=== PATIENT | female | born 1960 | race Caucasian/White ===

== ENCOUNTER → 2024-01-11 16:08 | Outpatient (REF) | payer BC, SELFPAY | LOC: HWRCS 16:08 | PROVIDERS: ATTENDING PHYSICIAN Internal Medicine Cardiovascular Disease; FAMILY PHYSICIAN Physician Assistant Medical | DX: I47.20 Ventricular tachycardia, unspecified (principal) | CPT/HCPCS: 93306 ==

== ENCOUNTER → 2024-02-07 08:38 | Outpatient (REF) | payer BC, SELFPAY | LOC: DHCBC/DCA 08:38 | PROVIDERS: ATTENDING PHYSICIAN Internal Medicine Cardiovascular Disease; FAMILY PHYSICIAN Physician Assistant Medical | DX: I47.20 Ventricular tachycardia, unspecified (principal); I25.5 Ischemic cardiomyopathy; Z95.810 Presence of automatic (implantable) cardiac defibrillator | CPT/HCPCS: 78452; 93017; A9500; J2785 ==

== ENCOUNTER 2024-04-22 21:32 | Emergency (ER) | payer BC, SELFPAY ==
[2024-04-22 21:37] VITALS: BP 170/85
[2024-04-22 22:01] VITALS: BP 150/63
[2024-04-22 22:33] VITALS: BMI 29.8
[2024-04-22 22:38] LABS: % Basophils 0.4 % (0-2); % Eosinophils 0.6 % (0-6); % Immature Granulocytes 0.3 % (0-0.5); % Lymphocytes 29.3 % (20.5-51.1); % Monocytes 5.9 % (1.7-9.3); % Neutrophils 63.5 % (42.2-75.2); Absolute Lymphocytes 2.1 10^3/uL (1.2-3.4); Absolute Monocytes 0.4 10^3/uL (0.1-0.6); Absolute Neutrophils 4.4 10^3/uL (1.4-6.5); Hematocrit 40.9 % (37.0-47.0); Hemoglobin 12.8 g/dL (12.0-16.0); Mean Corp Hgb Conc. 31.3 g/dL (33.0-37.0); Mean Corpuscular Hgb 25.8 pg (27.0-31.0); Mean Corpuscular Volume 82.5 fL (81.0-99.0); Mean Platelet Volume 9.5 fL (7.4-10.4); Nucleated Red Blood Cells % 0 %; Platelet Count 182 10^3/uL (130-400); Red Blood Cell Count 4.96 10^6/uL (4.20-5.40); Red Cell Dist. Width 14.5 % (11.5-14.5)
[2024-04-22] MEDS: NSS 1000 IV (22:53)
[2024-04-22 22:56] LABS: ALT (SGPT) 29 U/L (0-35); AST (SGOT) 28 U/L (14-36); Albumin 4.7 g/dl (3.5-5.0); Alkaline Phosphatase 57 U/L (38-126); Blood Urea Nitrogen 17 mg/dl (7-17); Calcium 9.7 mg/dl (8.4-10.2); Carbon Dioxide 27 mmol/L (22-30); Chloride 102 mmol/L (98-107); Estimated Creatinine Clearance 45 ml/min; Glucose 167 mg/dl (70-99); Potassium 3.7 mmol/L (3.5-5.1); Sodium 140 mmol/L (135-145); Total Protein 7.1 g/dl (6.3-8.2); eGFR 56.46
[2024-04-22 23:00] VITALS: BP 151/62
--- NOTE | 2024-04-22 23:17 | ED.GENMED ---
History of Present Illness
General
Chief Complaint: AICD Problem
Source: patient
Exam Limitations: none
Time Seen by Provider: 04/22/24 21:48
History of Present Illness
History of Present Illness:
This is a 64 year old female that comes in with c/o of her defibrillator firing. States that in 17 years her defibrillator has never gone off. State that it went off in August and she then saw the rn cardiovascular and did a lot of testing. Then in February
it went off again as her heart rate went up to 200 she was shocked and then ok. 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 States that she did not fall. State that she just felt strange and lightheaded. States that she
was also nauseated. Denies any fever, chills, chest pain, SOB, abd pain, vomiting, urinary burning.
Past History
Past History
ED Past Medical History: CAD, CHF, GERD, HTN, Hypercholesterolemia, NIDDM, [place], Psychiatric (Anxiety, ) and Other (Back pain, Sciatica, cardiac arrest, Hiatal hernia, Pancreatitis, Renal calculus, Iron def anemia. )
ED Past Surgical History: Cardiac (CABG x4, AICD), Cholecystectomy, , Gynecological (), Orthopedic (Left total knee replacement), Tonsilectomy and Other (Teeth extraction. )
Social History
Tobacco: Former smoker
Alcohol: Occasional
Personal:
Living: with family
Employment: Employed
Family History
Family History: Diabetes and CAD
Review of Systems
Review of Systems
All Other Systems: ROS reviewed and negative except as documented in HPI and ROS
Constitutional: Reports no symptoms; Denies fever or chills
EENT: Reports no symptoms
Respiratory: Reports no symptoms; Denies cough or trouble breathing
Cardiac: Reports other (Defib shock); Denies chest pain
ABD/GI: Reports nausea; Denies abdominal pain, vomiting or diarrhea
: Reports no symptoms; Denies dysuria, frequency or urgency
Musculoskeletal: Reports no symptoms
Skin: Reports no symptoms
Neurological: Reports headache and other (Lightheaded)
Psychiatric: Reports no symptoms
Phy Exam
General Physical Exam
General Presentation: well appearing and no apparent distress
General age: appears stated age
General Skin: warm and dry
General Habitus: normal
General Mental: alert
General Hydration: dry mucous membranes
ENT Exam
ENT Exam: TM's normal, pharynx normal and neck supple
Eye Exam
Eye Exam: EOMI
Cardiovascular Exam
Cardiovascular Exam: no edema, normal peripheral pulses and irregularly irregular
Pulmonary Exam
Pulmonary Exam: lungs clear, no respiratory distress, no rales, chest non tender, no crackles, no rhonchi, no wheezing and no cough
Gastrointestinal Exam
Gastrointestinal Exam: normal bowel sounds, non tender, soft, no organomegaly, no pulsatile mass and non distended
Musculoskeletal Exam
Musculoskeletal Exam: full ROM, neck pain, back pain and no edema
Skin Exam
Skin Exam: normal color, warm/dry, no rash and no petechia
Psychiatric Exam
Psychiatric Exam: normal mood/affect
Course
Orders/Labs/Results
Orders:
Orders
04/22/24 21:33
Electrocardiogram (*1) Urgent
Reason for Study: Other
Other Reason for Exam: AICD FIRED STILL HAVING DISCOMFORT
04/22/24 21:34
EKG- Treatment ONCE
04/22/24 22:02
0.9% Sodium Chloride 1000 ml [Nss] 1,000 ml IV BOLUS
Nursing to Place Non Medication Order As Directed
Physician Order: Please interrogate Pacer.
Above order entered?: Yes
04/22/24 22:31
Complete Blood Count/With Diff Urgent
Comprehensive Metabolic Panel Urgent
Troponin I Urgent
04/22/24 23:30
EKG- Treatment ONCE
04/22/24 23:35
Pantoprazole [Protonix IV] 40 mg IV NOW STA
04/22/24 23:43
Urinalysis Reflex To Culture Urgent
Date Specimen was Collected: 04/22/24
Time Specimen was Collected: 23:38
04/23/24 01:30
Electrocardiogram (*1) Urgent
Reason for Study: Other
Other Reason for Exam: Repeat with Troponin
04/23/24 01:39
Troponin I Urgent
Abnormal Lab Results
04/22/24 04/22/24 04/23/24
22:31 23:43 01:39
MCH 25.8 L pg
(27.0-31.0)
MCHC 31.3 L g/dL
(33.0-37.0)
Creatinine 1.1 H mg/dL
(0.6-1.0)
Glucose 167 H mg/dl
(70-99)
Troponin I 0.036 H* ng/ml
Urine Glucose 3+ A
(Negative)
04/22/24 22:31
04/22/24 22:31
Cr slightly elevated. hyperglycemia. Troponin 0.030
Vital Signs
Initial and Last Documented VS:
Initial Vital Signs
Temp Pulse Resp BP Pulse Ox
98 F 82 16 170/85 98
04/22/24 21:37 04/22/24 21:37 04/22/24 21:37 04/22/24 21:37 04/22/24 21:37
Last Documented Vital Signs
Temp Pulse Resp BP Pulse Ox
98 F 67 15 141/64 98
04/22/24 21:37 04/23/24 02:15 04/23/24 02:15 04/23/24 02:09 04/23/24 02:15
MDM/Problems Addressed
Differential Diagnosis Includes:
Defibrillator shock,
MDM/Problems Addressed:
This is a 64 year old female that comes in as her Defib. went off. States that she just felt strange and lightheaded so she came in.
Will check labs. and get chest x-ray. Will also given IV fluids. Spoke with Dr. Morales and sent ECG. If patient is feeling better and troponin stays unchanged patient can follow up with the [facility] Nurse in the office.
Repeat ECG: rate 68, 1st degree heart block, Left axis, QRS normal occasional PVC,
Back into see patient. Patient is taking oral fluids. States that she is feeling better. Explained that her Troponin changed every so slightly. Patient to follow up with the [facility] Nurse in there office for further evaluation. Message also sent to
the [facility] Nurse to notify him of this slight bump. Patient to increase her water intake to 8-8oz glasses daily. Return with any concerns .
*Pulse Oximetry
Patient hypoxic: no
*EKG
Interpreted by ED Provider?: Yes
Heart Rate: 83
Rate: normal
Rhythm: sinus and PVC's
[place]: left axis deviation
Interval: normal interval
QRS Pattern: normal QRS
Ischemia: no ischemia
*Hide And Skin Fleshing Machine Operator Interpretation
Rate: normal
Heart Rate: 86
Rhythm: sinus and PVC's
*Critical Care Note
Total Time (30-74mins, 75-104mins- exclusive of procedures): Not Applicable
ED Attending Note
-
Portions of this chart may have been created with voice recognition software.� Occasional wrong word or��sound alike� substitutions may have occurred due to the inherent limitations of voice recognition software.
Discharge Plan
Departure
Patient Disposition: Home (Routine Discharge)
Date of Disposition: 04/23/24
Time of Disposition: 02:33
Patient with high blood pressure during this ER visit?: Yes
Condition: Good
Covid-19: Not Applicable
Discharge Problem:
Defibrillator discharge
Instructions: Ventricular premature beats, BLOOD PRESSURE
Prescriptions:
No Action
furosemide 20 MG tablet
20 mg PO DAILY
cyanocobalamin (vitamin B-12) [Vitamin B-12] 500 MCG tablet
500 mcg PO DAILY
ranitidine HCl [Zantac] 150 MG tablet
150 mg PO PRN PRN (Reason: Heartburn)
cetirizine 10 MG tablet
10 mg PO HS
zolpidem 10 MG tablet
10 mg PO HS
cholecalciferol (vitamin D3) 1,000 UNITS tablet
1,000 units PO DAILY
pantoprazole 40 MG tablet,delayed release (DR/EC)
40 mg PO DAILY
metformin 500 MG tablet
500 mg PO BID
rosuvastatin [Crestor] 40 MG tablet
40 mg PO HS
spironolactone 12.5 MG tablet
12.5 mg PO DAILY
lorazepam 0.5 MG tablet
0.5 mg PO PRN PRN (Reason: Anxiety)
glimepiride 2 MG tablet
2 mg PO BID
acetaminophen [Tylenol Arthritis Pain] 650 MG tablet extended release
2 tab PO BID PRN (Reason: pain)
Saline Nasal [place]
1 applic intranasal PRN PRN (Reason: dryness)
docusate sodium 100 MG capsule
100 mg PO BID 0RF
oxycodone 5 MG tablet
5 mg PO Q4HPRN PRN (Reason: mild pain) Qty: 60 0RF
Rx Instructions:
1-2 every 4-6 hour as needed for pain
Aspirin Low (Enteric Coated):
81 mg PO DAILY
Entresto 97 mg-103 mg Tablet
1 tab PO BID
carvedilol 12.5 MG tablet
25 mg PO BID
ondansetron [Zofran ODT] 8 MG tablet,disintegrating
4 mg PO TID PRN (Reason: nausea)
Referrals:
Sree Morales MD [Active] - Follow up in 2-3 days
Leatha Currie PA-C [Family Provider] -
Activity Restrictions/Additional Instructions:
As discussed, your blood work shows that your blood sugar is elevated. Your Troponin did not change much and you are feeling better. Please increase your water intake to 8-8oz glasses daily. Please call the [facility] Nurse office and let them know you
were here and set up a follow up appointment. They may want to change your Medication. IF YOU HAVE ANY FURTHER DISCHARGES, CHEST PAIN, OR YOU HAVE ANY OTHER CONCERNS PLEASE RETURN TO THE EMERGENCY ROOM.
Interventions
Interventions:
*Risk Screen - Suicide Last Done: 04/22/24 21:37
*General Assessment Last Done: 04/22/24 22:38
*Neglect/Abuse Screening Last Done: 04/22/24 21:37
ED- Fall Risk Assessment Last Done: 04/22/24 22:38
*ED COVID-19 Vaccine History Last Done: 04/22/24 22:38
ED- Cardiac Assessment Last Done: 04/22/24 22:38
ED- Pulmonary Assessment Last Done: 04/22/24 22:38
Discharge Date and Time
Print Language: SPANISH
[2024-04-22] MEDS: PROTONIX IV 40 MG IV (23:44)
[2024-04-23 00:07] LABS: Urine Albumin Negative (Neg - Trace); Urine Bilirubin Negative (Negative); Urine Character Clear (Clear); Urine Color Yellow; Urine Glucose 3+ (Negative); Urine Ketone Negative (Negative); Urine Leukocyte Negative (Negative); Urine Nitrite Negative (Negative); Urine Occult Blood Negative (Negative); Urine Specific Gravity 1.005 (<1.030); Urine Urobilinogen Negative (Neg - 1+)
[2024-04-23 02:09] VITALS: BP 141/64
[2024-04-23 02:20] LABS: Troponin I 0.036 ng/ml
== END 2024-04-23 02:48 | disposition home or self-care (01) ==
LOC: EMR 21:32
PROVIDERS: Clinical Nurse Specialist Family Health; Emergency Medicine; EMERGENCY PHYSICIAN Student in an Organized Health Care Education/Training Program; FAMILY PHYSICIAN Physician Assistant Medical
DX: Z45.02 Encounter for adjustment and management of automatic implantable cardiac defibrillator (principal); Z95.810 Presence of automatic (implantable) cardiac defibrillator; I25.10 Atherosclerotic heart disease of native coronary artery without angina pectoris; I11.0 Hypertensive heart disease with heart failure; I50.9 Heart failure, unspecified; E11.65 Type 2 diabetes mellitus with hyperglycemia; E78.00 Pure hypercholesterolemia, unspecified; F41.9 Anxiety disorder, unspecified; I49.3 Ventricular premature depolarization; K21.9 Gastro-esophageal reflux disease without esophagitis; Z82.49 Family history of ischemic heart disease and other diseases of the circulatory system; Z83.3 Family history of diabetes mellitus; Z86.74 Personal history of sudden cardiac arrest; Z87.442 Personal history of urinary calculi; Z87.891 Personal history of nicotine dependence; Z90.49 Acquired absence of other specified parts of digestive tract; Z95.1 Presence of aortocoronary bypass graft
CPT/HCPCS: 99283; 96374; 80053; 81003; 84484; 85025; 93005

== ENCOUNTER 2024-05-31 08:34 | Day surgery (SDC) | payer BC, SELFPAY ==
[2024-05-22 10:32] VITALS: BMI 29.3
[2024-05-22 11:08] LABS: % Basophils 0.5 % (0-2); % Eosinophils 1.8 % (0-6); % Immature Granulocytes 0.4 % (0-0.5); % Monocytes 7.1 % (1.7-9.3); % Neutrophils 60.2 % (42.2-75.2); Absolute Eosinophils 0.1 10^3/uL (0-0.7); Absolute Lymphocytes 1.7 10^3/uL (1.2-3.4); Absolute Monocytes 0.4 10^3/uL (0.1-0.6); Absolute Neutrophils 3.3 10^3/uL (1.4-6.5); Hematocrit 36.1 % (37.0-47.0); Hemoglobin 11.3 g/dL (12.0-16.0); Mean Corp Hgb Conc. 31.3 g/dL (33.0-37.0); Mean Corpuscular Hgb 24.8 pg (27.0-31.0); Mean Corpuscular Volume 79.3 fL (81.0-99.0); Mean Platelet Volume 10.2 fL (7.4-10.4); Nucleated Red Blood Cells % 0 %; Platelet Count 157 10^3/uL (130-400); Red Blood Cell Count 4.55 10^6/uL (4.20-5.40); White Blood Cell Count 5.5 10^3/uL (4.8-10.8)
[2024-05-22 11:40] LABS: ALT (SGPT) 19 U/L (0-35); AST (SGOT) 19 U/L (14-36); Albumin 4.1 g/dl (3.5-5.0); Alkaline Phosphatase 61 U/L (38-126); Blood Urea Nitrogen 13 mg/dl (7-17); Calcium 8.9 mg/dl (8.4-10.2); Carbon Dioxide 25 mmol/L (22-30); Chloride 105 mmol/L (98-107); Estimated Creatinine Clearance 64 ml/min; Glucose 158 mg/dl (70-99); Potassium 3.6 mmol/L (3.5-5.1); Sodium 139 mmol/L (135-145); Total Bilirubin 1.1 mg/dl (0.2-1.3); Total Protein 6.3 g/dl (6.3-8.2); eGFR > 60.00
[2024-05-31] VITALS (14 sets, daily range): BP systolic 106–140; BP diastolic 57–88; BMI 29.2
[2024-05-31 09:23] LABS: Glucose - Point of Care 189 mg/dl (70-99)
--- NOTE | 2024-05-31 10:25 | PTCARENOTE ---
Dr Rivas at pt bedside speaking to pt and pt's and pt's sister.
[2024-05-31 12:36] LABS: ACT-LR - POC 360 Seconds (116-155)
[2024-05-31 13:15] LABS: ACT-LR - POC 347 Seconds (116-155)
--- NOTE | 2024-05-31 14:04 | ITS.CL.ABL ---
Veneer Grader - Ablation
Ablation
Procedure Report:
Procedure Report:
VT ablation:
Ms. Pitt is a 64 yo pleasant woman with PMH of ICM with ventricular tachycardia requiring multiple shocks from ICD and increasing burden of PVCs. Patient has a history of cardiac arrest status post ICD and CABG in 2005, ischemic cardiomyopathy
with large inferior and inferolateral scar of the left ventricle, LVEF 40% with history of hypertension, DM, HPL now with NYHA class III symptoms with VT and increasing PVC burden presented today to the EP lab for VT ablation
Date of the Procedure:
05/31/2024
Indications:
Ischemic Ventricular Tachycardia
Premature ventricular contractions
Pre-Operative Diagnosis:
Ischemic Ventricular Tachycardia
Premature ventricular contractions.
Post-Operative Diagnosis:
Ischemic Ventricular Tachycardia
Premature ventricular contractions.
Procedure Performed:
Ventricular tachycardia ablation - Substrate Modification
Focal VT ablation / PVC ablation.
3D mapping
ICE
Performing Physician:
Maria Dolores Rivas MD
Anesthesia:
See anesthesia records
Detailed Description of the Procedure:
Written informed consent was obtained from the patient after a full explanation of the risks and benefits of the procedure including the risks of sedation and anesthesia. The patient was brought to the electrophysiology laboratory in stable
condition in fasting state. Continuous electrocardiographic and hemodynamic monitoring was initiated.
The initial rhythm was normal sinus rhythm with PVCs.
Device Interrogation:
Patient has Med[employer]onic ICD in place. The device was interrogated at the start of the case. The device and the lead was working normally. The tachy-therapies monitoring and interventions were suspended before the start of the case. The clinical statistical programmer
remained connected in the room throughout the procedure.
At the end of the case the device was reprogrammed to normal functioning at the previous settings. All therapies are resumed and ICD was armed before patient left the procedure room.
Time out:
The procedure site was meticulously prepared with surgical scrub and allowed to dry with no pooling. Sterile draping was applied to cover the procedure site. The image intensifier was draped with sterile bag and positioned over the patient.
Prior to the start of the procedure a surgical pause was performed with in agreement from anesthesia, EP staff with double identifier and explanation of the procedure, plan and site of the procedure stated with allergies and medications and
pertinent labs reviewed.
After infusion of local anesthetic, vascular access was obtained under ultrasound guidance and sheaths were placed over guide wire as detailed below.
Sheath and Catheter Placement:
The femoral sheath was upgraded as needed during the case. The following catheters / sheaths were placed
Sheaths:
��������������� 8Fr in right femoral vein � upgraded to Agilis
��������������� 9Fr sheath in right femoral vein
Catheters:
��������������� 4 mm force sensing irrigated Tacticath SF Bidirectional - at locations of RA, LA, LV
��������������� The Advisor HD Grid Mapping Catheter, Sensor Enabled� (LocalCustomer)- at locations of LA, LV
��������������� Accu-Franky ICE catheter
Intracardiac ECHO:
An 8-[place] AcuNav intracardiac ECHO (ICE) probe was advanced through the 9-[place] Citizen sheath in the femoral vein into the right atrium under fluoroscopic and ICE ultrasound image guidance and a baseline ECHO study was performed. The left atrial size
was dilated. There was moderate tricuspid regurgitation. The bioprosthetic aortic valve was grossly normal. There was moderate mitral regurgitation noted. There was moderately reduced left ventricular systolic function. There is trace pericardial
effusion.
During the procedure, ICE was used for monitoring of complications, guidance of trans-septal puncture, monitor the catheter position and tracking ablation lesions. No change in the pericardial space noted throughout the procedure.
Trans-septal Puncture:
Heparin was initiated and infused to maintain appropriate ACT. A J-tipped guidewire was advanced through the 8-[place] Citizen sheath in the right femoral vein into the superior vena cava under fluoroscopic and ICE guidance. The 8-[place] Citizen sheath was exchanged
for an Agilis sheath which was advanced into the superior vena cava. A BRK transseptal needle was advanced until the tip was slightly behind the tip of the dilator inside the Agilis sheath. The apparatus was withdrawn until it was in contact with
the fossa ovalis. The position was adjusted based on fluoroscopy and ultrasound images from ICE. Under fluoroscopic, hemodynamic and ICE ultrasound guidance, left atrium was cannulated by advancing the needle. Once atrial septum was cannulated, the
needle was pulled back and a BMW guide wire was advanced through the needle into the left atrium. The guide wire was advanced into the left superior pulmonary vein. Both the sheath and the dilator was advanced into the left atrium. The dilator with
the needle was withdrawn. Blood was aspirated from the sheath and arterial blood confirmed. The sheath was flushed. Saline injection noted into the left atrium on ICE. The mapping catheter was advanced in the Agilis sheath into the left pulmonary
vein.
3D Electroanatomic Mapping:
Using the 3D mapping and EAM of the LA and LV was obtained using [employer] precision mapping system and radiofrequency ablation was performed using an open irrigation, force-sensing 4mm radiofrequency ablation catheter ([employer]� Quartz
contact force ablation catheter). Cardiac anatomy was established.
First LA was mapped. Then the LV cavity was mapped with high density mapping using the HD Grid and the scar areas were identified.
The LV scar was inferior and infero lateral locations.
There was multitude of late diastolic potentials noted in the LV cavity. There were channels identified in the scar that was delayed but were able to conduct and the heterogonous zones were marked. The area of slowest conduction was marked for
ablation.
Patient had salvos of VT with catheter in the area and the area of initiation was noted and marked.
Ablation:
Ventricular tachycardia: Substrate Modification:
The radiofrequency ablation was performed using an open irrigation, force-sensing 4mm radiofrequency ablation catheter (TactiCath� Quartz contact force ablation catheter). The scar and heterogeneous zones were identified that are responsible for
slow conduction and propagate VT. These areas were ablated in series of lesions.
The scars borders were identified and the critical areas were ablated. The heterogenours / border zones were homogenized. The slowest conduction area of the scar was marked and ablated with consolidating lesions.
There were multiple areas that started the VT but with ablation converted to sinus rhythm or paced rhythm. All areas of the irritability was studied and the abnormal fractionated signals and late diastolic signals were ablated one by one.
Focal VT / PVC ablation:
The focal area of the VT was noted coming from the pap muscle. The pap muscle initially induced VT of 320 msec. The VT was sustained and was focal. The VT was difficult to map given the continuous movement of the pap muscle. Given hemodynamic
instability, patient was cardioverted to sinus rhythm.
Further mapping of the LV and pap muscle was done and the catheter pressing on the pap muscle induced fast VT 280 msec CL. It was unstable and was cardioverted. The pap muscle was also noted to be the origin of PVC. However, the ectopy in LV made it
difficult to map the PVC as it was difficult to differentiate clinical to catheter induced PVCs.
Patient pap muscle tip was ablated and additional ablation lesions were placed.
No VT was inducible at end of the study with aggressive pacing maneuvers. MUSTT protocol was used with S1, S2, S3, and S4 and no VT was inducible. Burst pacing from the LV cavity was also uneventful.
Procedure End
ICE study was done again that showed no epicardial accumulation. No complications noted.
Following the completion of the EP study, catheters were removed. Protamine 40 mg was given at the end of the procedure and ACT was checked repeatedly. The sheaths were removed and hemostasis achieved with figure of 8 suture and manual compression
after acceptable ACT is achieved.
LA and LV Pressure:
Pre-Procedure: Mean LA pressure was 5mmHg
Estimated Blood loss:
<5 cc
Specimens Removed:
None.
Implants / Devices:
None
Urine output:
None
Packs / Drains/ Tubes:
None
Instrument / Sponge Count Correct:
Yes
Complications of the Procedure:
None
Condition of Patient at Time of Transfer:
Hemodynamically stable with no neurological or vascular compromise.
Summary:
VT ablation with scar based reentry with substrate modification and focal papillary muscle VT /PVC ablation.
[2024-05-31 14:45] LABS: Glucose - Point of Care 163 mg/dl (70-99)
[2024-05-31] MEDS: TYLENOL 650 MG PO ×2 (14:59→23:04)
--- NOTE | 2024-05-31 15:55 | CM ---
Chart reviewed. Patient is independent of ADLS, lives with her in a 2 STH, 2 LAURE, 0 DME. Plan is for the patient to return home. CM to follow
[2024-05-31] MEDS: GLUCOPHAGE 500 MG PO (18:47)
--- NOTE | 2024-05-31 19:56 | PTCARENOTE ---
Pt received post VT ablation.Right femoral vein site with dry and intact dressing, figure of eight suture removed without problem, no sign of bleeding or hematoma. Pt OOB with assist of one, c/o slight dizziness. Pt voiding without problem.
telemetry shows sinus rhythm with first degree AV block and frequent PVC's.
[2024-05-31] MEDS: ENTRESTO 97 MG/103 MG 1 TAB PO (20:26)
[2024-05-31] MEDS: AMARYL 2 MG PO (20:26)
[2024-05-31] MEDS: COREG 25 MG PO (20:27)
[2024-05-31] MEDS: CRESTOR 40 MG PO (23:04)
[2024-05-31] MEDS: AMBIEN 10 MG PO (23:04)
[2024-05-31] MEDS: ZYRTEC 10 MG PO (23:04)
[2024-06-01 00:11] LABS: Glucose - Point of Care 283 mg/dl (70-99)
--- NOTE | 2024-06-01 03:00 | PTCARENOTE ---
Pt received at change of shift. NSR with PVCs on tele with HR 70s-80s. Pt denies dizziness and CP. R fem site c/d/i with no complications noted. Ambulating independently in room without difficulty. Can make needs known. Call hedrick within reach.
[2024-06-01 03:47] VITALS: BP 125/64
[2024-06-01 03:50] VITALS: BMI 30.2
[2024-06-01 04:33] LABS: Hematocrit 31.4 % (37.0-47.0); Hemoglobin 10.1 g/dL (12.0-16.0); Mean Corp Hgb Conc. 32.2 g/dL (33.0-37.0); Mean Corpuscular Hgb 24.9 pg (27.0-31.0); Mean Corpuscular Volume 77.5 fL (81.0-99.0); Mean Platelet Volume 10.1 fL (7.4-10.4); Platelet Count 152 10^3/uL (130-400); Red Blood Cell Count 4.05 10^6/uL (4.20-5.40); Red Cell Dist. Width 13.8 % (11.5-14.5); White Blood Cell Count 5.3 10^3/uL (4.8-10.8)
[2024-06-01 04:48] LABS: Blood Urea Nitrogen 17 mg/dl (7-17); Calcium 8.6 mg/dl (8.4-10.2); Carbon Dioxide 21 mmol/L (22-30); Chloride 110 mmol/L (98-107); Estimated Creatinine Clearance 72 ml/min; Glucose 239 mg/dl (70-99); Magnesium 1.8 mg/dl (1.6-2.3); Potassium 3.7 mmol/L (3.5-5.1); Sodium 138 mmol/L (135-145); eGFR > 60.00
--- NOTE | 2024-06-01 07:37 | W.PN.CD ---
Today's Communication / Plan
-
- Stable for discharge
Impression / Plan
-
Ms. Pitt is a 64 yo pleasant woman with PMH of ICM with ventricular tachycardia requiring multiple shocks from ICD and increasing burden of PVCs. Patient has a history of cardiac arrest status post ICD and CABG in 2005, ischemic cardiomyopathy
with large inferior and inferolateral scar of the left ventricle, LVEF 40% with history of hypertension, DM, HPL now with NYHA class III symptoms with VT and increasing PVC burden s/p VT ablation
VT
- s/p ablation 05/31/24
- s/p substrate modification and scar based reentry VT ablation
- s/p focal Pap muscle VT ablation
- Still have some PVCs - unclear clinical significance
- Groins examined and looks good with n o bleeding or hematoma
- Telemetry showed no VT - only rare PVCs.
- No Amiodarone or AAD at this time (Patient does not like Amiodarone)
- If VT noted in next 2-3 months then can consider addition of Amiodarone or Ranexa
- ICD in place and working normally.
CAD
- On ASA, Coreg, Farxiga, Entresto and Crestor
- On Lasix.
- No sign of ischemia
Ischemic cardiomyopathy
- NYHA class III
- ECHO 01/11/24: LVEF 40%
- On GDMT
Physical Exam
Vital Signs/Labs
Vital Signs
Temp Pulse Resp BP Pulse Ox
98 F 76 18 126/75 96
06/01/24 03:49 06/01/24 00:00 06/01/24 03:49 05/31/24 22:52 06/01/24 03:49
05/31/24 06/01/24 06/02/24
06:59 06:59 06:59
Actual Weight 70.1 kg
06/01/24 04:08
06/01/24 04:08
Magnesium 1.8 mg/dl (1.6-2.3) 06/01/24 04:08
Physical Exam
Constitutional: No acute distress and Comfortable
EENT: Anicteric and Moist mucous membranes
Cardiovascular: Rhythm & rate is regular, Pedal edema is absent and JVD pressure is normal
Respiratory: Respiratory effort normal, Lungs clear to auscul., Wheeze Absent and Crackles Absent
GI: Soft, Non tender and Normal bowel sounds
Neuro/Psych: Alert, Oriented and AO x 3
Other: Cath Site
Data Reviewed
-
Date of Service: June 01, 2024
Medical Decision Making: Reviewed Test Results, Test Interpretation and Review of Case with other Provider
EKG: Tracing Personally Visualized and interpreted
Echo: Report Reviewed by me
Labs: Labs Reviewed by me
Old Records: Reviewed
[2024-06-01 07:54] VITALS: BMI 30.2
[2024-06-01 08:38] VITALS: BP 124/67
[2024-06-01] MEDS: GLUCOPHAGE 500 MG PO (08:57)
[2024-06-01] MEDS: FARXIGA 10 MG PO (08:57)
[2024-06-01] MEDS: ENTRESTO 97 MG/103 MG 1 TAB PO (08:57)
[2024-06-01] MEDS: COREG 25 MG PO (08:58)
[2024-06-01] MEDS: PROTONIX 40 MG PO (08:58)
[2024-06-01] MEDS: ALDACTONE 12.5 MG PO (08:58)
[2024-06-01] MEDS: AMARYL 2 MG PO (08:58)
[2024-06-01] MEDS: LASIX 20 MG PO (08:59)
[2024-06-01] MEDS: ASPIR LOW (ENTERIC COATED) 81 MG PO (08:59)
[2024-06-01] MEDS: TYLENOL 650 MG PO (09:02)
[2024-06-01 09:21] LABS: Glucose - Point of Care 215 mg/dl (70-99)
[2024-06-01 10:15] LABS: ACT-LR - POC > 397 Seconds (116-155)
[2024-06-01 10:15] LABS: ACT-LR - POC > 397 Seconds (116-155)
[2024-06-01 11:29] VITALS: BP 135/63
--- NOTE | 2024-06-01 11:36 | W.DS.TRANS ---
DC Summary - Actionscript Developer
-
Discharge Instructions:
Sleep Apnea Risk Low
Discharge Diagnosis/Procedures Ventricular tachycardia post ablation
Diet Diabetic, Carb Controlled,Low Cholesterol,2 Gram
Sodium
Driving Restrictions No driving for 24 hours
Specialty Instructions Weigh Daily
Instructions:
Stand-Alone Forms: DC Instructions- Cath/EP Lab
Changes to Home Medications: No
Discharge Medications:
DC Medications w/original date entered in [facility]
furosemide 20 mg tablet 20 mg PO DAILY Fluid Retention/Swelling 08/16/12
cyanocobalamin (vitamin B-12) 500 mcg tablet (Vitamin B-12) 500 mcg PO DAILY Supplement 10/23/15
cetirizine 10 mg tablet 10 mg PO HS Allergies 12/04/15
cholecalciferol (vitamin D3) 25 mcg (1,000 unit) tablet 1,000 units PO DAILY Supplement 12/04/15
zolpidem 10 mg tablet 10 mg PO HS Sleep 12/04/15
metformin 500 mg tablet 500 mg PO BID Diabetes 05/13/16
pantoprazole 40 mg tablet,delayed release 40 mg PO DAILY Gastrointestinal Issue 05/13/16
rosuvastatin 40 mg tablet (Crestor) 40 mg PO HS High Cholesterol 05/13/16
lorazepam 0.5 mg tablet 0.5 mg PO PRN PRN Anxiety 07/08/17
spironolactone 25 mg tablet 12.5 mg PO DAILY Fluid Retention/Swelling 07/08/17
acetaminophen 650 mg tablet,extended release (Tylenol Arthritis Pain) 2 tab PO BID pain 03/10/18
glimepiride 2 mg tablet 2 mg PO BID Diabetes 03/10/18
ondansetron 8 mg disintegrating tablet (Zofran ODT) 4 mg PO TID PRN nausea 05/16/19
Tums 2 chewable tab PO DAILYPRN PRN refulx 05/31/24
aspirin 81 mg tablet,delayed release 81 mg PO DAILY Blood Clot Prevention/Tx 05/31/24
carvedilol 25 mg tablet 25 mg PO BID Heart Disease/Condition 05/31/24
dapagliflozin propanediol 10 mg tablet (Farxiga) 10 mg PO DAILY 05/31/24
famotidine 20 mg tablet (Pepcid) 20 mg PO DAILYPRN PRN gerd 05/31/24
sacubitril 97 mg-valsartan 103 mg tablet (Entresto) 1 tab PO BID Heart Disease/Condition 05/31/24
Home Medication Changes
Pending Results: No
--- NOTE | 2024-06-01 12:02 | PTCARENOTE ---
d/c instructions read to pt and pt verbalized understanding. iv and tele removed. groin dressing CDI. pt left w/ belongings from room, d/c instructions and educational packets. pt left via wheelchair with staff member.
== END 2024-06-01 12:03 | disposition home or self-care (01) ==
LOC: CATH 08:34
PROVIDERS: Nurse Practitioner Adult Health; ATTENDING PHYSICIAN Internal Medicine Cardiovascular Disease; FAMILY PHYSICIAN Physician Assistant Medical; OTHER PHYSICIAN Internal Medicine Cardiovascular Disease
DX: I47.20 Ventricular tachycardia, unspecified (principal); I25.5 Ischemic cardiomyopathy; I49.3 Ventricular premature depolarization; Z95.1 Presence of aortocoronary bypass graft; E11.9 Type 2 diabetes mellitus without complications; Z86.74 Personal history of sudden cardiac arrest; Z79.899 Other long term (current) drug therapy; Z79.84 Long term (current) use of oral hypoglycemic drugs; Z79.82 Long term (current) use of aspirin; I25.10 Atherosclerotic heart disease of native coronary artery without angina pectoris; I47.10 Supraventricular tachycardia, unspecified; Z88.1 Allergy status to other antibiotic agents; Z88.5 Allergy status to narcotic agent; Z91.041 Radiographic dye allergy status
CPT/HCPCS: 93662; C1732; C1769; C1766; C2630; C1894; C1892; C1759; 36415; 76937; 80048; 80053; 82962; 83036; 83735; 85025; 85027; 85347; 93005; 93462; 93654

== ENCOUNTER 2024-07-06 16:48 | Emergency (ER) | payer BC, SELFPAY ==
[2024-07-06 16:51] VITALS: BP 175/91
[2024-07-06 17:24] LABS: % Basophils 0.7 % (0-2); % Immature Granulocytes 0.2 % (0-0.5); % Lymphocytes 29.9 % (20.5-51.1); % Monocytes 7.2 % (1.7-9.3); Absolute Eosinophils 0.1 10^3/uL (0-0.7); Absolute Lymphocytes 1.8 10^3/uL (1.2-3.4); Absolute Monocytes 0.4 10^3/uL (0.1-0.6); Absolute Neutrophils 3.8 10^3/uL (1.4-6.5); Hematocrit 36.6 % (37.0-47.0); Hemoglobin 11.7 g/dL (12.0-16.0); Mean Corpuscular Hgb 24.8 pg (27.0-31.0); Mean Corpuscular Volume 77.7 fL (81.0-99.0); Mean Platelet Volume 9.8 fL (7.4-10.4); Nucleated Red Blood Cells % 0 %; Platelet Count 173 10^3/uL (130-400); Red Blood Cell Count 4.71 10^6/uL (4.20-5.40); White Blood Cell Count 6.2 10^3/uL (4.8-10.8)
[2024-07-06 17:38] LABS: ALT (SGPT) 36 U/L (0-35); AST (SGOT) 28 U/L (14-36); Albumin 4.4 g/dl (3.5-5.0); Alkaline Phosphatase 70 U/L (38-126); Blood Urea Nitrogen 14 mg/dl (7-17); Calcium 9.6 mg/dl (8.4-10.2); Carbon Dioxide 22 mmol/L (22-30); Chloride 106 mmol/L (98-107); Glucose 141 mg/dl (70-99); Potassium 3.9 mmol/L (3.5-5.1); Sodium 138 mmol/L (135-145); Total Bilirubin 1.4 mg/dl (0.2-1.3); Total Protein 6.6 g/dl (6.3-8.2); eGFR > 60.00
[2024-07-06 17:49] LABS: Troponin I < 0.012 ng/ml
[2024-07-06 20:17] VITALS: BMI 27.5
[2024-07-06 21:00] VITALS: BP 163/89
--- NOTE | 2024-07-06 21:08 | ED.GENMED ---
History of Present Illness
General
Chief Complaint: Heart Rate Problem
Source: patient and spouse
Exam Limitations: none
Time Seen by Provider: 07/06/24 20:11
Nursing documentation reviewed up to this point in time: agreed with
History of Present Illness
History of Present Illness:
64-year-old female past medical history of CHF CAD, pacemaker in place, diabetes presenting to the emergency department today with concerns of right ear pain nausea has had intermittent chest pain over the past few weeks but none present or
throughout the day today. Denies nausea vomiting numbness weakness fevers.
Past History
Past History
ED Past Medical History: CAD, CHF, GERD, HTN, Hypercholesterolemia, NIDDM, [place], Psychiatric (Anxiety, ) and Other (Back pain, Sciatica, cardiac arrest, Hiatal hernia, Pancreatitis, Renal calculus, Iron def anemia. )
ED Past Surgical History: Cardiac (CABG x4, AICD), Cholecystectomy, , Gynecological (), Orthopedic (Left total knee replacement), Tonsilectomy and Other (Teeth extraction. )
Social History
Tobacco: Former smoker
Alcohol: Occasional
Personal:
Living: with family
Employment: Employed
Family History
Family History: Diabetes and CAD
Review of Systems
Review of Systems
Allergies reviewed?: Yes
All Other Systems: ROS reviewed and negative except as documented in HPI and ROS
Phy Exam
Physical Exam
Physical Exam:
GENERAL: Alert , in no apparent distress
EYE: pupils equal and reactive
NECK: Supple, no significant adenopathy.
ENT: o/p clr, mmm.
CARDIAC: Regular rate and rhythm .
LUNGS: Clear breath sounds bilaterally, no acute respiratory distress, no wheezes/rales/rhonchi
ABDOMEN: Soft, without focal tenderness, no r/g, no cvat
NEUROLOGICAL: Alert and oriented, no focal neuro deficits
SKIN: Warm and dry, skin intact.
MUSCULOSKELETAL: No edema, well perfused.
PSYCH: Normal and appropriate interaction.
Course
Orders/Labs/Results
Orders:
Orders
07/06/24 16:55
Electrocardiogram (*1) Urgent
Reason for Study: Chest Pain
EKG- Treatment ONCE
07/06/24 17:14
Complete Blood Count/With Diff Urgent
Comprehensive Metabolic Panel Urgent
Troponin I Urgent
Abnormal Lab Results
07/06/24
17:14
Hgb 11.7 L g/dL
(12.0-16.0)
Hct 36.6 L %
(37.0-47.0)
MCV 77.7 L fL
(81.0-99.0)
MCH 24.8 L pg
(27.0-31.0)
MCHC 32.0 L g/dL
(33.0-37.0)
Glucose 141 H mg/dl
(70-99)
Total Bilirubin 1.4 H mg/dl
(0.2-1.3)
ALT 36 H U/L
(0-35)
07/06/24 17:14
07/06/24 17:14
Vital Signs
Initial and Last Documented VS:
Initial Vital Signs
Temp Pulse Resp BP Pulse Ox
98.5 F 86 18 175/91 98
07/06/24 16:51 07/06/24 16:51 07/06/24 16:51 07/06/24 16:51 07/06/24 16:51
Last Documented Vital Signs
Temp Pulse Resp BP Pulse Ox
98.5 F 84 13 163/89 98
07/06/24 16:51 07/06/24 21:00 07/06/24 21:00 07/06/24 21:00 07/06/24 21:00
MDM/Problems Addressed
MDM/Problems Addressed:
64-year-old female presenting to the emergency department with multiple symptoms mainly concerned of nausea stomach achiness some right ear pain starting yesterday has had some intermittent chest pain over the past few weeks but none more recently.
On arrival blood pressure elevated otherwise vital signs are normal. Labs unremarkable troponin negative EKG normal patient does not have any apparent emergent life threats at this time some effusion to her right ear was advised to use Flonase.
Otherwise table for discharge return precautions given.
*Critical Care Note
Total Time (30-74mins, 75-104mins- exclusive of procedures): Not Applicable
ED Attending Note
-
Portions of this chart may have been created with voice recognition software.� Occasional wrong word or��sound alike� substitutions may have occurred due to the inherent limitations of voice recognition software.
Discharge Plan
Departure
Patient Disposition: Home (Routine Discharge)
Date of Disposition: 07/06/24
Time of Disposition: 21:08
Patient with high blood pressure during this ER visit?: No
Condition: Good
Covid-19: Not Applicable
Discharge Problem:
Chest pain, Acute ear pain
Instructions: Chest Pain CBC Follow Up
Prescriptions:
No Action
furosemide 20 MG tablet
20 mg PO DAILY
cyanocobalamin (vitamin B-12) [Vitamin B-12] 500 MCG tablet
500 mcg PO DAILY
cetirizine 10 MG tablet
10 mg PO HS
zolpidem 10 MG tablet
10 mg PO HS
cholecalciferol (vitamin D3) 1,000 UNITS tablet
1,000 units PO DAILY
pantoprazole 40 MG tablet,delayed release (DR/EC)
40 mg PO DAILY
metformin 500 MG tablet
500 mg PO BID
rosuvastatin [Crestor] 40 MG tablet
40 mg PO HS
spironolactone 12.5 MG tablet
12.5 mg PO DAILY
lorazepam 0.5 MG tablet
0.5 mg PO PRN PRN (Reason: Anxiety)
glimepiride 2 MG tablet
2 mg PO BID
acetaminophen [Tylenol Arthritis Pain] 650 MG tablet extended release
2 tab PO BID
ondansetron [Zofran ODT] 8 MG tablet,disintegrating
4 mg PO TID PRN (Reason: nausea)
carvedilol 25 mg Tablet
25 mg PO BID
dapagliflozin propanediol [Farxiga] 10 mg Tablet
10 mg PO DAILY
sacubitril-valsartan [Entresto] 97-103 mg Tablet
1 tab PO BID
aspirin 81 mg Tablet,Delayed Release (Dr/Ec)
81 mg PO DAILY
famotidine [Pepcid] 20 mg Tablet
20 mg PO DAILYPRN PRN (Reason: gerd)
Tums
2 chewable tab PO DAILYPRN PRN (Reason: refulx)
Activity Restrictions/Additional Instructions:
You came to the emergency department today with concerns of intermittent chest pain nausea right ear pain. Here you had a reassuring assessment. Please follow closely with cardiology. Return for any worsening, new or concerning symptoms.
Interventions
Interventions:
*Risk Screen - Suicide Last Done: 07/06/24 21:58
*General Assessment Last Done: 07/06/24 21:58
*Neglect/Abuse Screening Last Done: 07/06/24 21:58
*Nursing Disposition Last Done: 07/06/24 21:59
ED- Cardiac Assessment Last Done: 07/06/24 21:55
ED- Pulmonary Assessment Last Done: 07/06/24 21:55
Discharge Date and Time
Discharge Date/Time: 07/06/24 21:59
Print Language: VENEZUELAN
== END 2024-07-06 21:59 | disposition home or self-care (01) ==
LOC: EMR 16:48
PROVIDERS: Emergency Medicine; EMERGENCY PHYSICIAN Emergency Medicine; FAMILY PHYSICIAN Physician Assistant Medical
DX: H92.01 Otalgia, right ear (principal); R07.89 Other chest pain; I50.9 Heart failure, unspecified; I25.10 Atherosclerotic heart disease of native coronary artery without angina pectoris; Z95.810 Presence of automatic (implantable) cardiac defibrillator; Z87.891 Personal history of nicotine dependence; E11.9 Type 2 diabetes mellitus without complications
CPT/HCPCS: 99284; 80053; 84484; 85025; 93005

== ENCOUNTER 2024-09-22 01:52 | Observation (INO) | payer BC, SELFPAY ==
[2024-09-21 21:36] VITALS: BP 172/93
[2024-09-21 22:05] LABS: % Basophils 0.6 % (0-2); % Eosinophils 1.7 % (0-6); % Immature Granulocytes 0.2 % (0-0.5); % Lymphocytes 34.7 % (20.5-51.1); % Monocytes 6.3 % (1.7-9.3); % Neutrophils 56.5 % (42.2-75.2); Absolute Eosinophils 0.1 10^3/uL (0-0.7); Absolute Lymphocytes 1.8 10^3/uL (1.2-3.4); Absolute Monocytes 0.3 10^3/uL (0.1-0.6); Hematocrit 35.6 % (37.0-47.0); Hemoglobin 11.4 g/dL (12.0-16.0); Mean Corpuscular Hgb 24.8 pg (27.0-31.0); Mean Corpuscular Volume 77.4 fL (81.0-99.0); Nucleated Red Blood Cells % 0 %; Platelet Count 153 10^3/uL (130-400); Red Cell Dist. Width 16.6 % (11.5-14.5); White Blood Cell Count 5.3 10^3/uL (4.8-10.8)
[2024-09-21 22:18] LABS: ALT (SGPT) 24 U/L (0-35); AST (SGOT) 23 U/L (14-36); Albumin 4.2 g/dl (3.5-5.0); Alkaline Phosphatase 66 U/L (38-126); Blood Urea Nitrogen 16 mg/dl (7-17); Calcium 9.3 mg/dl (8.4-10.2); Carbon Dioxide 21 mmol/L (22-30); Chloride 112 mmol/L (98-107); Glucose 169 mg/dl (70-99); Potassium 3.9 mmol/L (3.5-5.1); Sodium 139 mmol/L (135-145); Total Bilirubin 1.1 mg/dl (0.2-1.3); Total Protein 6.4 g/dl (6.3-8.2); eGFR > 60.00
[2024-09-21 22:27] LABS: Troponin I 0.049 ng/ml
[2024-09-21 23:31] VITALS: BP 135/71
[2024-09-21] MEDS: ZOFRAN ODT (ORALLY DISINTEGRATING) 4 MG PO (23:38)
[2024-09-22] VITALS (9 sets, daily range): BP systolic 108–151; BP diastolic 60–100; BMI 28.9
--- NOTE | 2024-09-22 00:07 | ED.GENMED ---
History of Present Illness
General
Chief Complaint: Chest Pain
Source: patient
Exam Limitations: none
Time Seen by Provider: 09/21/24 23:47
Nursing documentation reviewed up to this point in time: agreed with
History of Present Illness
History of Present Illness:
The patient is a pleasant 64-year-old female with a past medical history of coronary artery disease, cardiac bypass surgery, and defibrillator, who presents with 2 days of intermittent nausea. Patient denies abdominal pain and diarrhea. She denies
vomiting. She denies fever. Patient reports that about 3 hours prior to her arrival to the ED, she developed 5 out of 10 mid sternal chest tightness. Patient reports that shortly after coming to the ED, her chest pain went down on its own to a 1
out of 10. Currently it is still a 1 out of 10. Patient denies shortness of breath and sweating. Patient denies leg pain and leg swelling.
Past History
Past History
ED Past Medical History: CAD, CHF, GERD, HTN, Hypercholesterolemia, NIDDM, [place], Psychiatric (Anxiety, ) and Other (Back pain, Sciatica, cardiac arrest, Hiatal hernia, Pancreatitis, Renal calculus, Iron def anemia. )
ED Past Surgical History: Cardiac (CABG x4, AICD), Cholecystectomy, , Gynecological (), Orthopedic (Left total knee replacement), Tonsilectomy and Other (Teeth extraction. )
Social History
Tobacco: Former smoker
Alcohol: Occasional
Drug: None
Personal:
Living: with family
Employment: Employed
Family History
Family History: Diabetes and CAD
Review of Systems
Review of Systems
Allergies reviewed?: Yes
All Other Systems: ROS reviewed and negative except as documented in HPI and ROS
Constitutional: Reports no symptoms
EENT: Reports no symptoms
Respiratory: Reports no symptoms
Cardiac: Reports chest pain
ABD/GI: Reports nausea
Musculoskeletal: Reports no symptoms
Skin: Reports no symptoms
Neurological: Reports no symptoms
Endocrine: Reports no symptoms
Hematologic/Lymphatic: Reports no symptoms
Psychiatric: Reports no symptoms
Phy Exam
Physical Exam
Physical Exam:
Physical Exam
General: no apparent distress, not acutely ill. Patient is smiling and conversational
Neck: supple. no meningeal signs. normal psoterior pharynx
Heart: s1/s2 regular rate and rhythm, equal radial and femoral pulses bilaterally
Lungs: no acute respiratory distress. clear bilaterally
Abdomen: normal bowel sounds. not tender. no CVAT. No pulsatile mass
Neuro: alert and oriented. no focal neurological deficits
Skin: no rash
Psychiatric: well kept. interactive and cooperative
Extremities: no edema. no calf tenderness. negative homans. good distal pulses
Scores
Heart Score for Chest Pain Patients
STEMI patient?: No
History: Slightly or Non-Suspicious
ECG: Nonspecific Repolarization
Age: >45 - <65 years
Risk Factors: >/= 3 Risk Factors or History of CAD
Troponin: >1 - <3 x Normal Limit
Heart Score for Chest Pain Patients: 5
Heart Score Risk: 20.3% MACE over next 6 weeks
Course
Orders/Labs/Results
Orders:
Orders
09/21/24 21:36
Electrocardiogram (*1) Urgent
Reason for Study: Chest Pain
EKG- Treatment ONCE
09/21/24 21:53
Complete Blood Count/With Diff Urgent
Comprehensive Metabolic Panel Urgent
Lipase Urgent
Comment: ADD ON
Troponin I Urgent
09/21/24 23:37
Ondansetron Orally Disint [Zofran Odt (Orally Disintegrating)] 4 mg .ROUTE .STK-MED ONE
09/21/24 23:38
Ondansetron Orally Disint [Zofran Odt (Orally Disintegrating)] 4 mg PO NOW STA
09/22/24 00:25
Nitroglycerin Sublingual [Nitrostat (Sublingual)] 0.4 mg SL NOW STA
09/22/24 00:49
Add On- LAB Urgent
Tests Added?: lipase
EKG [Electrocardiogram (*1)] Urgent
Reason for Study: Chest Pain
EKG- Treatment ONCE
09/22/24 00:50
CR Chest - 2 Views Urgent
Comment:
Reason For Exam: CP
09/22/24 00:58
Aspirin Chewable [Low Strength Aspirin] 324 mg PO NOW STA
09/22/24 01:10
Troponin I Urgent
09/22/24 01:31
Admit/Transfer Patient As Directed
Co-Sign Provider:
Level of Care: Observation services
Assign to:: Telemetry
Physician / Group: Bassem
Diagnosis: Chest Pain
Reason for Telemetry: Chest Pain syndromes
Date to Stop Telemetry: 09/24/24
Time to Stop Telemetry: 11:00
PRN Pain Medication Management As Directed
May give lesser potent ordered pain med per pt: Yes
preference::
Protocol:: Medication orders for pain may be administered in a
manner that supports deferring to patient preference
when the pt is:
- Requesting an ordered lesser potent pain medication.
Least to most potent pain medications are defined
as: acetaminophen < NSAID < tramadol < opioids
(morphine, oxycodone, hydromorphone).
- Requesting a lesser dose of the same medication IF
ORDERED.
- Requesting a less intrusive route of administration
if both routes are prescribed by the provider (PO <
IV).
09/22/24 01:32
Code Status As Directed
Resuscitation Status: Full Code
09/22/24 02:00
Flush (0.9% Sodium Chloride) [Flush (Nss)] See Dose Instructions IV PER PROTOCOL
09/24/24 11:00
DC Protocol for Telemetry ONCE
Abnormal Lab Results
09/21/24 09/22/24
21:53 01:10
Hgb 11.4 L g/dL
(12.0-16.0)
Hct 35.6 L %
(37.0-47.0)
MCV 77.4 L fL
(81.0-99.0)
MCH 24.8 L pg
(27.0-31.0)
MCHC 32.0 L g/dL
(33.0-37.0)
RDW 16.6 H %
(11.5-14.5)
Chloride 112 H mmol/L
(98-107)
Carbon Dioxide 21 L mmol/L
(22-30)
Glucose 169 H mg/dl
(70-99)
Troponin I 0.049 H* ng/ml 0.042 H* ng/ml
09/21/24 21:53
09/21/24 21:53
Vital Signs
Initial and Last Documented VS:
Initial Vital Signs
Temp Pulse Resp BP Pulse Ox
98.5 F 82 16 172/93 98
09/21/24 21:36 09/21/24 21:36 09/21/24 21:36 09/21/24 21:36 09/21/24 21:36
Last Documented Vital Signs
Temp Pulse Resp BP Pulse Ox
98.5 F 68 13 121/60 97
09/21/24 21:36 09/22/24 02:00 09/22/24 02:00 09/22/24 02:00 09/22/24 01:45
MDM/Problems Addressed
Differential Diagnosis Includes:
Acute coronary syndrome, pneumonia, gastritis
MDM/Problems Addressed:
Patient presents with acute chest pain and nausea
Chronic conditions affecting care: CAD
Acute Exacerbation and/or Progression of Chronic Illness:
Patient may have acute coronary syndrome
Acute Exacerbation and/or Progression of Chronic Illness: CAD
*Radiology
Radiology exam reviewed: preliminary read by ED provider (Chest x-ray reviewed by me. Cardiomegaly without acute disease)
*Pulse Oximetry
Patient hypoxic: no
*EKG
Interpreted by ED Provider?: Yes
Interpretation: abnormal
Comparison EKG: changes noted (T wave is now inverted in lead V2)
Rate: normal
Rhythm: sinus
[place]: left axis deviation
Interval: normal interval
QRS Pattern: normal QRS
Ischemia: non-specific ST changes
*Fender Repairer Interpretation
Rate: normal
Interpretation: normal
Rhythm: sinus
*Critical Care Note
Total Time (30-74mins, 75-104mins- exclusive of procedures): 35 minutes
comment:
35 minutes critical care given to patient including reassessing her for any further chest pain, reviewing her EKGs, lab work, and speaking to hospitalist and lube attendant
Data Reviewed
Review of Other/Old Records Reveals: Testing (Cardiac stress test gave indeterminant results in 2023)
Source: patient
Patient Management
Social determinants of health affecting care: Living situation and Strong social support
Discussion with other providers: Hospitalist and Other (Case discussed with Dr. Hercules who agreed to evaluate patient on consult.)
Escalation/DeEscalation of care consider admission/obs:
Patient given 1 sublingual nitro. Patient reports that her pain stayed at a 1 out of 10 given the sublingual nitro.
2:25 AM second troponin is slightly less than initial troponin. Patient is nearly pain-free and looks well and comfortable.
ED Attending Note
-
Portions of this chart may have been created with voice recognition software.� Occasional wrong word or��sound alike� substitutions may have occurred due to the inherent limitations of voice recognition software.
Discharge Plan
Departure
Patient Disposition: Admit
Date of Disposition: 09/22/24
Time of Disposition: 00:47
Admit to: Telemetry
Presentation/result/management discussed w/ accepting MD/DO: Hospitalist
Patient with high blood pressure during this ER visit?: Yes
Condition: Good
Covid-19: Not Applicable
Discharge Problem:
Elevated troponin, Chest pain
Interventions
Interventions:
*Risk Screen - Suicide Last Done: 09/21/24 21:36
*General Assessment Last Done: 09/21/24 23:31
*Neglect/Abuse Screening Last Done: 09/21/24 21:36
*ED- Fall Risk Assessment Last Done: 09/21/24 21:36
*ED COVID-19 Vaccine History Last Done: 09/21/24 23:12
ED- Cardiac Assessment Last Done: 09/21/24 23:31
[2024-09-22] MEDS: NITROSTAT (SUBLINGUAL) 0.4 MG SL (00:29)
[2024-09-22] MEDS: LOW STRENGTH ASPIRIN 324 MG PO (01:17)
[2024-09-22] MEDS: FLUSH (NSS) 1 FLUSH IV (01:18)
--- NOTE | 2024-09-22 01:35 | HPS.HSE ---
Family Physician
-
Family Physician: NOT KNOW UNKNOWN - PT DOES
Chief Complaint
-
Chest Pain
History of Present Illness
Patient is a 64y F with PMH significant for ASCVD, HFrEF, HTN and DM-II who presents to ED complaining of chest discomfort, nausea and fatigue x 2 days. Patient states that they travelled to [place] this weekend for the holiday. She felt
somewhat nauseated yesterday while driving back home. She noted some dizziness and development of epigastric / lower chest discomfort. Patient states that she gets heartburn / indigestion symptoms from time to time. However, she also has
extensive cardiac history which is of concern. With persistent symptoms throughout the day today, she presented to the ED for further evaluation.
Patient reports poor appetite, general fatigue. No emesis. No diarrhea. No fevers / chills, cough or shortness of breath.
In the ED, patient continues to describe some epigastric discomfort.
Medical History
Past Medical History
Past Medical History: Reports Other
Additional Past Medical History:
ASCVD (Cardiac Arrest in 2005)
Ventricular Tachycardia
HFrEF
Hypertension
DM-II
CKD III
Iron Deficiency Anemia
GERD
Past Surgical History: Reports Other
Additional Past Surgical History:
CABG / AICD Placement (2005)
VT Ablation (05/31/24)
Cholecystectomy
T&A
Left TKA
Cystoscopy
Social History
Tobacco: Former Smoker (Quit smoking in 2005. )
Alcohol: Occasional (Rare.)
Drug: None
Family History
Family History: Other (Father: CAD Mother: Breast Cancer)
Allergies / Home Medications
Allergies reflects when Allergies were last updated in [employer].
Home Medications with original date entered in [employer]
Allergy/Medication List:
Allergies
Allergy/AdvReac Type Severity Reaction Status Date / Time
azithromycin Allergy DIARRHEA Verified 09/21/24 21:38
clindamycin Allergy DIARRHEA Verified 09/21/24 21:38
codeine Allergy Nausea Verified 09/21/24 21:38
diazepam (From Valium) Allergy Agitation, Verified 09/21/24 21:38
Hyperactivity
diphenhydramine HCl (From Allergy Agitation, Verified 09/21/24 21:38
Benadryl) Hyperactivity
erythromycin base Allergy diarrhea Verified 09/21/24 21:38
Iodinated Contrast Media Allergy SEVERE Verified 09/21/24 21:38
(Iodinated Contrast- Oral HYPOTENSION
and IV Dye)
perflutren Allergy low blood Verified 09/21/24 21:38
pressure
pseudoephedrine AdvReac restlessness, Verified 09/21/24 21:38
palpitations
IV DYE Allergy Severe Uncoded 09/21/24 21:38
Hypotension
seasonal Allergy sneezing,post Uncoded 09/21/24 21:38
nasal
drip,
stuffiness
Home Medications
furosemide 20 mg tablet 20 mg PO DAILY Fluid Retention/Swelling 08/16/12
cyanocobalamin (vitamin B-12) 500 mcg tablet (Vitamin B-12) 500 mcg PO DAILY Supplement 10/23/15
cetirizine 10 mg tablet 10 mg PO HS Allergies 12/04/15
cholecalciferol (vitamin D3) 25 mcg (1,000 unit) tablet 1,000 units PO DAILY Supplement 12/04/15
zolpidem 10 mg tablet 10 mg PO HS Sleep 12/04/15
metformin 500 mg tablet 500 mg PO BID Diabetes 05/13/16
pantoprazole 40 mg tablet,delayed release 40 mg PO DAILY Gastrointestinal Issue 05/13/16
rosuvastatin 40 mg tablet (Crestor) 40 mg PO HS High Cholesterol 05/13/16
lorazepam 0.5 mg tablet 0.5 mg PO PRN PRN Anxiety 07/08/17
spironolactone 25 mg tablet 12.5 mg PO DAILY Fluid Retention/Swelling 07/08/17
acetaminophen 650 mg tablet,extended release (Tylenol Arthritis Pain) 2 tab PO BID pain 03/10/18
glimepiride 2 mg tablet 2 mg PO BID Diabetes 03/10/18
aspirin 81 mg tablet,delayed release 81 mg PO DAILY Blood Clot Prevention/Tx 05/31/24
carvedilol 25 mg tablet 25 mg PO BID Heart Disease/Condition 05/31/24
dapagliflozin propanediol 10 mg tablet (Farxiga) 10 mg PO DAILY 05/31/24
sacubitril 97 mg-valsartan 103 mg tablet (Entresto) 1 tab PO BID Heart Disease/Condition 05/31/24
Review of Systems
-
History Source: Patient
A 12 point ROS was completed and negative except as noted: Yes
Constitutional: Reports Fatigue; Denies Fever or Chills
EENT: Denies Sore Throat
Respiratory: Denies Cough or Trouble Breathing
Cardiac: Reports Chest Pain; Denies Diaphoresis, Palpitations or Syncope
Abdomen/GI: Reports Nausea and Anorexia; Denies Abdominal Pain, Vomiting or Diarrhea
: Denies Dysuria or Frequency
Musculoskeletal: Denies Joint Pain or Edema
Neurological: Denies Dizzy or Headache
Psych: Denies Depression or Anxiety
Physical Exam
Vital Signs
Vital Signs
Temp Pulse Resp BP Pulse Ox
98.5 F 72 15 143/100 100
09/21/24 21:36 09/22/24 01:15 09/22/24 01:15 09/22/24 01:00 09/22/24 01:15
Physical Exam
General: Other (64y F in no acute distress.)
HEENT: Moist mucous membranes and PERRLA
Respiratory: Clear; No Wheezes, Rales or Rhonchi
Cardiac: S1/S2, Regular Rhythm and Murmur (II/ JOSÉ MANUEL)
GI: Soft, Non Tender, Non Distended and Normal Bowel Sounds
Musculoskeletal: No Clubbing, No Cyanosis and No Edema
Neuro: AO x 3
Laboratory Results
-
09/21/24 21:53
09/21/24 21:53
Laboratory Results
Total Bilirubin 1.1 mg/dl (0.2-1.3) 09/21/24 21:53
AST 23 U/L (14-36) 09/21/24:53
ALT 24 U/L (0-35) 09/21/24 21:53
Alkaline Phosphatase 66 U/L (38-126) 09/21/24 21:53
Troponin I 0.049 ng/ml H* 09/21/24:53
Impression/Plan
-
A/P: Patient is a 64y F with PMH significant for ASCVD, HFrEF and GERD who presents to ED complaining of nausea and epigastric pain x 2 days.
Chest Pain / Epigastric Pain
ASCVD
- Observe overnight for further evaluation and treatment.
- ? CV versus GI origin of symptoms.
- EKG with new T wave inversions in V1 - V2, otherwise no changes from prior.
- Initial troponin mildly elevated at 0.049. Follow to peak.
- Continue current CV med regimen.
- Monitor for any new / worsening symptoms.
- Cardiology evaluation for additional recommendations.
GERD
- ? gastritis - especially following holiday weekend, travel, etc.
- Increase PPI to BID for now.
- Follow for any changes in symptoms.
Chronic HFrEF
History of VT s/p Ablation
- Stable. No evidence of volume overload on exam.
- s/p VT ablation in May of this year.
- Continue current med regimen.
- Follow I/Os, daily weights, etc.
Benign Hypertension
- Stable. Continue current meds without changes.
CKD III
- Stable. Renal function is at / near known baseline.
DM-II
- Stable. Hold metformin and glimepiride acutely.
- Continue Farxiga.
- Cover with SSI as needed.
- Update A1C.
DVT Prophylaxis: Lovenox
Code Status: Full
[2024-09-22 01:38] LABS: Lipase 174 U/L (23-300)
[2024-09-22 01:57] LABS: Troponin I 0.042 ng/ml
--- NOTE | 2024-09-22 05:17 | PTCARENOTE ---
Patient arrived to unit via stretcher around 3:30 am with dx of chest pain. AAOX3. Denies pain or discomfort at current time. Oriented to unit. Call hedrick within reach.
[2024-09-22 08:49] LABS: Hematocrit 36.3 % (37.0-47.0); Hemoglobin 11.9 g/dL (12.0-16.0); Mean Corp Hgb Conc. 32.8 g/dL (33.0-37.0); Mean Corpuscular Hgb 25.2 pg (27.0-31.0); Mean Corpuscular Volume 76.9 fL (81.0-99.0); Mean Platelet Volume 10.4 fL (7.4-10.4); Platelet Count 151 10^3/uL (130-400); Red Blood Cell Count 4.72 10^6/uL (4.20-5.40); Red Cell Dist. Width 16.8 % (11.5-14.5); White Blood Cell Count 6.6 10^3/uL (4.8-10.8)
--- NOTE | 2024-09-22 08:58 | CON.CAR ---
Addendum entered and electronically signed by Sharda Hercules MD 09/22/24 11:39:
Device with any events. No contraindication to discharge.
Addendum entered and electronically signed by Sharda Hercules MD 09/22/24 11:11:
I saw and examined the patient.
The RADIO ELECTRONICS TECHNICIAN's note was reviewed and I agree with the note.
Comment: 64 yo female with CAD/CABG x4 in 2005, ischemic cardiomyopathy EF 35-40%, primary VF arrest 12/2005 status post Medtronic dual-chamber ICD, recurrent monomorphic VT status post VT ablation 05/31/2024, hypertension, dyslipidemia, diabetes,
hiatal hernia and obesity presented feeling unwell for about 2 days. She complained of epigastric discomfort and nausea with poor p.o. intake. This is feeling better. She is anxious to try and eat. We were called given her complicated history
and initial troponin of 0.049. This already trended down to 0.042. When she had the feeling it was for 2 days constantly. EKG is nonischemic. On exam, she has a regular rate and rhythm with a normal S1-S2 lungs are clear to auscultation.
Abdomen nontender.Overall, findings are more consistent with a GI etiology given epigastric tenderness, anorexia and nausea. This is resolved. Troponins are not in the ischemic range. For completeness, I will investigate her device given her
complicated arrhythmic history. She does have PVCs on telemetry but but no VT. no other cardiovascular recommendations at this time. Okay to discharge from a cardiovascular perspective if device interrogation is not concerning. Plan discussed
with Dr. Martinez.
Original Note:
Consultation
Consultation Request
Date/Time Consultation Requested: 09/22/24 1a
Date/Time Consultation Performed: 09/22/24 8a
Requesting Provider: Dr. Vital
Performing Provider: KAYODE Levi for Dr. Hercules
Reason for Consultation: chest pain
Medical History
-
Chief Complaint: chest/epigastric pain
History of Present Illness:
Mrs. Pitt is a 64 yo female with CAD/CABG x4 in 2005, ischemic cardiomyopathy EF 35-40%, primary VF arrest 12/2005 status post Medtronic dual-chamber ICD, recurrent monomorphic VT status post VT ablation 05/31/2024, hypertension, dyslipidemia,
diabetes and obesity, who presents to the ER with complaints of epigastric discomfort and nausea for 2 days. She is admitted to the hospitalist service and we are consulted for chest pain. Her initial troponin 0.049 then trended down to 0.042,
initial EKG shows normal sinus rhythm 63 bpm with prior inferior infarct, no acute ischemia. Currently she denies any epigastric pain, chest pain or nausea. She states having a hiatal hernia and does get epigastric pain occasionally when she is
lying down and improves with sitting upright.
Past Medical History
Past Medical History: Other (As above)
Past Surgical History: Cardiac (CABG x 4 in 2005, dual-chamber Medtronic ICD implant 2005)
Social History
Tobacco: Non-Smoker
Personal:
Living: With Family
Employment: Employed
Allergies / Home Medications
Allergy/AdvReac Type Severity Reaction Status Date / Time
azithromycin Allergy DIARRHEA Verified 09/21/24 21:38
clindamycin Allergy DIARRHEA Verified 09/21/24 21:38
codeine Allergy Nausea Verified 09/21/24 21:38
diazepam (From Valium) Allergy Agitation, Verified 09/21/24 21:38
Hyperactivity
diphenhydramine HCl (From Allergy Agitation, Verified 09/21/24 21:38
Benadryl) Hyperactivity
erythromycin base Allergy diarrhea Verified 09/21/24 21:38
Iodinated Contrast Media Allergy SEVERE Verified 09/21/24 21:38
(Iodinated Contrast- Oral HYPOTENSION
and IV Dye)
perflutren Allergy low blood Verified 09/21/24 21:38
pressure
pseudoephedrine AdvReac restlessness, Verified 09/21/24 21:38
palpitations
IV DYE Allergy Severe Uncoded 09/21/24 21:38
Hypotension
seasonal Allergy sneezing,post Uncoded 09/21/24 21:38
nasal
drip,
stuffiness
�Medication �Instructions �Recorded �Confirmed �Type
furosemide 20 mg tablet 20 mg PO DAILY Fluid 08/16/12 09/22/24 History
Retention/Swelling
cyanocobalamin (vitamin B-12) 500 500 mcg PO DAILY Supplement 10/23/15 09/22/24 History
mcg tablet (Vitamin B-12)
cetirizine 10 mg tablet 10 mg PO HS Allergies 12/04/15 09/22/24 History
cholecalciferol (vitamin D3) 25 1,000 units PO DAILY Supplement 12/04/15 09/22/24 History
mcg (1,000 unit) tablet
zolpidem 10 mg tablet 10 mg PO HS Sleep 12/04/15 09/22/24 History
metformin 500 mg tablet 500 mg PO BID Diabetes 05/13/16 09/22/24 History
pantoprazole 40 mg tablet,delayed 40 mg PO DAILY Gastrointestinal 05/13/16 09/22/24 History
release Issue
rosuvastatin 40 mg tablet (Crestor) 40 mg PO HS High Cholesterol 05/13/16 09/22/24 History
lorazepam 0.5 mg tablet 0.5 mg PO PRN PRN Anxiety 07/08/17 09/22/24 History
spironolactone 25 mg tablet 12.5 mg PO DAILY Fluid 07/08/17 09/22/24 History
Retention/Swelling
acetaminophen 650 mg 2 tab PO BID pain 03/10/18 09/22/24 History
tablet,extended release (Tylenol
Arthritis Pain)
glimepiride 2 mg tablet 2 mg PO BID Diabetes 03/10/18 09/22/24 History
aspirin 81 mg tablet,delayed 81 mg PO DAILY Blood Clot 05/31/24 09/22/24 History
release Prevention/Tx
carvedilol 25 mg tablet 25 mg PO BID Heart 05/31/24 09/22/24 History
Disease/Condition
dapagliflozin propanediol 10 mg 10 mg PO DAILY 05/31/24 09/22/24 History
tablet (Farxiga)
sacubitril 97 mg-valsartan 103 mg 1 tab PO BID Heart 05/31/24 09/22/24 History
tablet (Entresto) Disease/Condition
Review of Systems
-
History Source: Patient
All other systems: Negative unless noted
Physical Exam
Vital Signs
Temp Pulse Resp BP Pulse Ox
97.7 F 66 8 147/65 98
09/22/24 04:37 09/22/24 04:37 09/22/24 03:45 09/22/24 04:37 09/22/24 04:37
Lab Results
09/22/24 04:28
Troponin I 0.042 ng/ml H* 09/22/24 01:10
Physical Exam
General: Well Developed, Well Nourished and No Apparent Distress
HEENT: Normocephalic, Anicteric and Moist Mucous Membranes
Respiratory: Clear and Non Labored Respirations
Cardiac: S1/S2 and Regular Rhythm (Occasional PVCs)
Breast: Deferred by me
GI: Soft, Non Tender, Non Distended and Normal Bowel Sounds
Rectal: Deferred by Provider
Genito-urinary: No Costovertebral Tender
Musculoskeletal: No Clubbing, No Cyanosis and No Edema
Neuro: AO x 3
Hematologic/Lymphatic: No Lymphadenopathy
Psych: Calm
Impression / Plan
-
Chest pain/epigastric pain - occurring for 2 days with nausea.
- Initial troponin 0.049, then trended down to 0.042.
- EKG without acute ischemia.
- Currently without any chest pain or epigastric pain. No nausea.
- Feels better on PPI, continue.
CAD - s/p CABG x4 in 2005.
- Lexiscan nuclear stress test 01/2024 with large defect fixed defect, no ischemia.
- Continue medical therapy; aspirin, carvedilol, Crestor.
ICM - EF 35-40%.
- No heart failure on exam.
- Continue GDMT with carvedilol. Entresto, Farxiga, Lasix, and Aldactone.
VT - s/p Medtronic dual-chamber ICD in place.
- recurrent episodes treated with shocks or ATP in August, February and March 2024.
- Status post VT ablation 05/31/24.
- Continue medical therapy.
- Follow closely in our outpatient device clinic, last interrogation 09/03/2024 without discharges and PVC burden less since ablation 05/2024.
- check [facility].
Hypertension - chronic and stable on medical therapy, continue.
Dyslipidemia -chronic and stable on Crestor, continue.
Data Reviewed
-
EKG: Tracing Personally Visualized and interpreted (Normal sinus rhythm 65 bpm, prior inferior infarct.)
Radiology: Report Reviewed by me (CXR: No active disease.)
Medical Tests (Nuc Med, Echo etc): Report Reviewed by me (Echo 12/2023: EF 35-40%, severe hypokinesis basal to mid inferior and inferoseptal loaiza, akinesis of the inferior lateral wall, no significant valve disease.) and Other (Lexiscan nuclear
stress 01/2024: Large fixed defect, no ischemia.)
Labs: Labs Reviewed by me
Old Records: Reviewed
[2024-09-22 09:20] LABS: Troponin I 0.055 ng/ml
--- NOTE | 2024-09-22 09:34 | PTCARENOTE ---
Pt requesting to wait until she is able to eat before taking am meds.
[2024-09-22 09:36] LABS: Troponin I 0.047 ng/ml
[2024-09-22 09:46] LABS: Blood Urea Nitrogen 16 mg/dl (7-17); Calcium 9.5 mg/dl (8.4-10.2); Carbon Dioxide 22 mmol/L (22-30); Chloride 112 mmol/L (98-107); Estimated Creatinine Clearance 55 ml/min; Glucose 85 mg/dl (70-99); HDL Cholesterol 81 mg/dl; LDL Cholesterol, Calculated 48 mg/dl; Potassium 3.7 mmol/L (3.5-5.1); Sodium 146 mmol/L (135-145); Total Cholesterol 153 mg/dl (50-199); Triglyceride 123 mg/dl (10-149); Very Low Density Lipoprotein 24 mg/dl (0-30); eGFR > 60.00
[2024-09-22 09:49] LABS: Glycohemoglobin (HgbA1c) 7.5 % (4.0-5.6)
--- NOTE | 2024-09-22 10:02 | W.PN.HOSP.TC ---
Addendum entered and electronically signed by Stiven Martinez MD 09/22/24 11:36:
Case discussed with Dr. Hercules. Awaiting Medtronic for AICD interrogation. Medically cleared for d/c assuming interrogation does not reveal any rhythms/events that require further hospitalization.
Total time spent on d/c = 31 min. This included today's physical exam, progress note, review of laboratory and diagnostic data, preparation of discharge documents and prescriptions, and discussions about the pt's hospital course and discharge plan
with the patient and other emergency medical services coordinator involved in the patient's care.
Original Note:
Today's Communication/Plan
-
see plan
Assessment / Plan
Assessment / Plan
64y F with PMH significant for ASCVD, HFrEF and GERD who presents to ED complaining of nausea and epigastric pain x 2 days.
Gen: NAD, AAOx3.
Eyes: EOMI, PERRLA, no scleral icterus.
Neck: supple.
CV: RRR, +S1/S2, no m/r/g.
Resp: CTAB, no rales, wheezes, or rhonchi.
Abd: +BS, soft, NT, ND
Skin: No rashes.
Neuro: CN 2-12 intact, non-focal.
Psych: Normal mood and affect.
CXR:
1. Normal heart size without evidence for acute pulmonary edema.
2. Previous CABG surgery.
3. Left-sided AICD in place.
Chest Pain/Epigastric Pain:
-h/o CAD
-EKG with new T wave inversions in V1 - V2, otherwise no changes from prior.
-trop peaked at 0.055
-cardiology following
-AICD to be interrogated
-pt's atypical chest pain/epigastric pain likely GI in origin. PPI has been increased to twice daily.
Other problems:
GERD: PPI increased to BID as above
Chronic HFrEF: cont BB/Lasix/Entresto/Aldactone
h/o VT s/p Ablation, AICD
Essential HTN: cont BB/Lasix/Entresto/Aldactone
DM2: a1c 7.5%, SSI/accuchecks, cont Farxiga
FULL/Lovenox
Anticipated Discharge: Today
Subjective/Interval History
-
Date of Service: September 22, 2024
Currently denies chest pain or shortness of breath. Symptoms have resolved.
Objective Data
-
Labs:
Laboratory Results
09/21/24 09/22/24
21:53 04:28
WBC 5.3 6.6
Hgb 11.4 L 11.9 L
Hct 35.6 L 36.3 L
Plt Count 153 151
Sodium 139 146 H
Potassium 3.9 3.7
Chloride 112 H 112 H
Carbon Dioxide 21 L 22
BUN 16 16
Creatinine 0.9 0.9
Glucose 169 H 85
Calcium 9.3 9.5
Total Bilirubin 1.1
AST 23
ALT 24
Alkaline Phosphatase 66
Vital Signs:
Vital Signs
Temp Pulse Resp BP Pulse Ox
97.8 F 69 19 108/73 98
09/22/24 07:00 09/22/24 07:00 09/22/24 07:00 09/22/24 07:00 09/22/24 07:00
--- NOTE | 2024-09-22 11:53 | W.DCSUMMARY ---
Discharge Summary
Discharge Data
Date of Admission: 09/22/24
Date of Discharge: 09/22/24
-
Pending Results: No
Hospital Course
Primary diagnoses:
Atypical chest pain
Secondary diagnoses:
Coronary artery disease
Gastroesophageal reflux disease
Chronic heart failure with reduced ejection fraction
h/o ventricular tachycardia s/p Ablation, AICD
Essential hypertension
Type 2 diabetes mellitus
Consultants:
Cardiology
Imaging:
CXR:
1. Normal heart size without evidence for acute pulmonary edema.
2. Previous CABG surgery.
3. Left-sided AICD in place.
Hospital course: 64-year-old female who was admitted on today's date after presenting with a chief complaint of chest pain as outlined in the H&P done on admission. The patient's EKG had new T wave inversions in V1 - V2, otherwise no changes from
prior. Her troponin peaked at 0.055. Patient's symptoms resolved while hospitalized. Her proton pump inhibitor was increased to twice daily. Her AICD was interrogated and the interrogation was normal as per Dr. Hercules. It is likely that the
patient's atypical chest pain/epigastric pain was GI in origin. She was discharged on Protonix 40 mg twice daily.
Discharge Plan
-
Patient Disposition: Home (Routine Discharge)
Discharge Diagnosis/Procedures: Atypical chest pain
Condition: Good
Diet: Low Sodium and Diabetic, Carb Controlled
Additional Diets: fluid restrict to 1200cc/day
Activity: As tolerated
Driving Restrictions: As prior to admission
Bathing Restrictions: None
Referrals:
Leatha Currie PA-C [Family Provider, Family Practice] - in less than 1 week
Prescriptions:
New
pantoprazole 40 mg Tablet,Delayed Release (Dr/Ec)
40 mg PO BID Qty: 60 0RF
Continued
furosemide 20 MG tablet
20 mg PO DAILY
cyanocobalamin (vitamin B-12) [Vitamin B-12] 500 MCG tablet
500 mcg PO DAILY
cetirizine 10 MG tablet
10 mg PO HS
zolpidem 10 MG tablet
10 mg PO HS
cholecalciferol (vitamin D3) 1,000 UNITS tablet
1,000 units PO DAILY
metformin 500 MG tablet
500 mg PO BID
rosuvastatin [Crestor] 40 MG tablet
40 mg PO HS
spironolactone 12.5 MG tablet
12.5 mg PO DAILY
lorazepam 0.5 MG tablet
0.5 mg PO PRN PRN (Reason: Anxiety)
glimepiride 2 MG tablet
2 mg PO BID
acetaminophen [Tylenol Arthritis Pain] 650 MG tablet extended release
2 tab PO BID
carvedilol 25 mg Tablet
25 mg PO BID
dapagliflozin propanediol [Farxiga] 10 mg Tablet
10 mg PO DAILY
Entresto 97-103 mg Tablet
1 tab PO BID
aspirin 81 mg Tablet,Delayed Release (Dr/Ec)
81 mg PO DAILY
Discontinued
pantoprazole 40 MG tablet,delayed release (DR/EC)
40 mg PO DAILY
Discharge Orders:
Discharge Patient (As Directed); Ordered 09/22/24
Ordered By: Stiven Martinez
Discharge Date and Time
Print Language: LIBYAN
[2024-09-22] MEDS: ENTRESTO 97 MG/103 MG 1 TAB PO (12:01)
[2024-09-22] MEDS: LASIX 20 MG PO (12:01)
[2024-09-22] MEDS: COREG 25 MG PO (12:01)
[2024-09-22] MEDS: ASPIR LOW (ENTERIC COATED) 81 MG PO (12:01)
[2024-09-22] MEDS: ALDACTONE 12.5 MG PO (12:01)
[2024-09-22] MEDS: FARXIGA 10 MG PO (12:01)
[2024-09-22] MEDS: PROTONIX 40 MG PO (12:01)
--- NOTE | 2024-09-22 12:35 | CM ---
Patient for d/c today. Patient seen bedside, initial assessment completed. Patient is a 64y F with PMH significant for ASCVD, HFrEF, HTN and DM-II who presents to ED complaining of chest discomfort, nausea and fatigue x 2 days.
Patient resides w/ spouse and adult son in a 2ST[facility], 2 steps to enter. Independent w/ ambulation and ADLs, no DME reported. No SNF/HC hx reported. Patient engaged in OP therapy in the past following knee replacement. 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
Address, point of contact and insurance verified
PCP: Leatha Currie
Pharmacy: [facility]
Patient admitted obs. OOBS form verbally reviewed, copy provided, copy on chart
Plan: Home today, no needs. Spouse will transport
== END 2024-09-22 13:41 | disposition home or self-care (01) ==
LOC: 4 WEST ACU 01:52
PROVIDERS: Emergency Medicine; ADMITTING PHYSICIAN Hospitalist; ATTENDING PHYSICIAN Internal Medicine; CONSULT PHYSICIAN Internal Medicine Cardiovascular Disease; EMERGENCY PHYSICIAN Emergency Medicine; FAMILY PHYSICIAN Physician Assistant Medical
DX: R07.89 Other chest pain (principal); R11.0 Nausea; K30 Functional dyspepsia; I25.10 Atherosclerotic heart disease of native coronary artery without angina pectoris; E11.22 Type 2 diabetes mellitus with diabetic chronic kidney disease; N18.30 Chronic kidney disease, stage 3 unspecified; I50.22 Chronic systolic (congestive) heart failure; E78.00 Pure hypercholesterolemia, unspecified; K21.9 Gastro-esophageal reflux disease without esophagitis; K44.9 Diaphragmatic hernia without obstruction or gangrene; I25.5 Ischemic cardiomyopathy; E66.9 Obesity, unspecified; I13.0 Hypertensive heart and chronic kidney disease with heart failure and stage 1 through stage 4 chronic kidney disease, or unspecified chronic kidney disease; R94.31 Abnormal electrocardiogram [ECG] [EKG]; F41.9 Anxiety disorder, unspecified; D50.9 Iron deficiency anemia, unspecified; I25.2 Old myocardial infarction; Z90.49 Acquired absence of other specified parts of digestive tract; Z95.810 Presence of automatic (implantable) cardiac defibrillator; Z95.1 Presence of aortocoronary bypass graft; Z83.3 Family history of diabetes mellitus; Z87.891 Personal history of nicotine dependence; Z87.442 Personal history of urinary calculi; Z86.74 Personal history of sudden cardiac arrest; Z82.49 Family history of ischemic heart disease and other diseases of the circulatory system; Z96.652 Presence of left artificial knee joint; Z88.5 Allergy status to narcotic agent; Z88.8 Allergy status to other drugs, medicaments and biological substances; Z88.1 Allergy status to other antibiotic agents; Z91.041 Radiographic dye allergy status; Z79.84 Long term (current) use of oral hypoglycemic drugs; Z68.28 Body mass index [BMI] 28.0-28.9, adult; Z80.3 Family history of malignant neoplasm of breast
CPT/HCPCS: 93289; 71046; 80048; 80053; 80061; 83036; 83690; 84484; 85025; 85027; 93005; 99291; G0378

== ENCOUNTER → 2024-11-12 11:14 | Outpatient (REF) | payer BC, SELFPAY | LOC: HWRAD 11:14 | PROVIDERS: ATTENDING PHYSICIAN Physician Assistant | DX: M54.2 Cervicalgia (principal) | CPT/HCPCS: 72040 ==

== ENCOUNTER → 2024-11-16 14:59 | Outpatient (REF) | payer BC, SELFPAY | LOC: RAD 14:59 | PROVIDERS: ATTENDING PHYSICIAN Physician Assistant; FAMILY PHYSICIAN Physician Assistant Medical | DX: I65.23 Occlusion and stenosis of bilateral carotid arteries (principal) | CPT/HCPCS: 93880 ==

== ENCOUNTER → 2025-01-01 09:46 | Outpatient (REF) | payer BC, SELFPAY | LOC: HWWDC 09:46 | PROVIDERS: ATTENDING PHYSICIAN Physician Assistant Medical | DX: Z12.31 Encounter for screening mammogram for malignant neoplasm of breast (principal) | CPT/HCPCS: 77063; 77067 ==

== ENCOUNTER → 2025-01-08 10:07 | Outpatient (REF) | payer BC, SELFPAY | LOC: WDC 10:07 | PROVIDERS: ATTENDING PHYSICIAN Physician Assistant Medical | DX: R92.8 Other abnormal and inconclusive findings on diagnostic imaging of breast (principal) | CPT/HCPCS: 76642 ==

== ENCOUNTER 2025-02-13 14:32 | Outpatient (RCR) | payer BC, SELFPAY ==
[2025-02-06] MEDS: VENOFER 110 MG IV (15:18)
[2025-02-06 15:20] VITALS: BP 105/55; BMI 28.9
[2025-02-06 16:24] VITALS: BP 124/63
[2025-02-11] MEDS: VENOFER 110 MG IV (14:06)
[2025-02-11 14:10] VITALS: BP 138/6
[2025-02-11 15:30] VITALS: BP 111/59
[2025-02-13] MEDS: VENOFER 110 MG IV (15:02)
[2025-02-13 15:16] VITALS: BP 121/74
== END 2025-02-14 10:47 | disposition home or self-care (01) ==
LOC: OID 14:32
PROVIDERS: ATTENDING PHYSICIAN Physician Assistant Medical
DX: D50.9 Iron deficiency anemia, unspecified (principal); I50.22 Chronic systolic (congestive) heart failure; N18.31 Chronic kidney disease, stage 3a
CPT/HCPCS: 96365; J1756

== ENCOUNTER 2025-03-06 14:34 | Outpatient (RCR) | payer BC, SELFPAY ==
[2025-02-27] MEDS: VENOFER 110 MG IV (14:52)
[2025-02-27 14:55] VITALS: BP 99/50
[2025-02-27 16:30] VITALS: BP 100/49
[2025-03-06 14:56] VITALS: BP 119/62
[2025-03-06] MEDS: VENOFER 110 MG IV (14:57)
[2025-03-06 16:06] VITALS: BP 120/73
== END 2025-03-07 10:30 | disposition home or self-care (01) ==
LOC: OID 14:34
PROVIDERS: ATTENDING PHYSICIAN Physician Assistant Medical
DX: D64.9 Anemia, unspecified (principal); N18.31 Chronic kidney disease, stage 3a; I25.5 Ischemic cardiomyopathy
CPT/HCPCS: 96365; J1756

== ENCOUNTER → 2025-03-11 16:03 | Outpatient (REF) | payer BC, SELFPAY | LOC: HWRCS 16:03 | PROVIDERS: ATTENDING PHYSICIAN Internal Medicine Cardiovascular Disease; FAMILY PHYSICIAN Physician Assistant Medical | DX: I50.22 Chronic systolic (congestive) heart failure (principal) | CPT/HCPCS: 93306 ==